=== PATIENT | male | born 1985 | race Caucasian/White ===

== ENCOUNTER 2017-05-13 01:19 | Emergency (ER) | payer SELFPAY ==
[~2017-05-13] VITALS: Ht 170.2 cm; Wt 70.7 kg
[~2017-05-13 01:19] MED LIST: CLARITIN,ALAVAR10 MG PO; MEDROL DOSEPAK4 MG PO; PREDNISONE5 MG PO; TRIAMCINOLONE A60 M1 TP; ZANTAC150 MG PO
[2017-05-13 01:47] LABS: HEMATOCRIT 43.9 % (38.0-50.0); MCH 32.4 PG (29.0-34.0); MCHC 35.1 G/DL (30.0-36.0); MCV 92.4 FL (86-99); PLATELET COUNT 198 K/uL (156-360); RBC DIS.WIDTH-CV 10.8 % (11.8-14.6); RBC DIS.WIDTH-SD 37.1 % (39-53); RED BLOOD COUNT 4.75 M/uL (4.00-5.50); WHITE BLOOD COUNT 11.7 K/uL (4.1-10.2)
[2017-05-13 02:07] LABS: CHLORIDE 110 mEq/L (99-109); POTASSIUM 3.7 mEq/L (3.7-5.4); SODIUM 144 mEq/L (136-147)
[2017-05-13 02:09] LABS: GLUCOSE 95 mg/dL (70-99)
[2017-05-13 02:10] LABS: ANION GAP 13 MEQ/L (2-14)
[2017-05-13 02:11] LABS: TOTAL BILIRUBIN 0.3 mg/dL (0.0-1.0)
[2017-05-13 02:12] LABS: ALKALINE PHOSPHATASE 52 IU/L (3-129); SERUM ETHYL ALCOHOL 174 mg/dL
[2017-05-13 02:13] LABS: GFR ESTIMATE (CALCULATED) > 59 mL/min/
[2017-05-13 02:14] LABS: UREA NITROGEN (BUN) 13 mg/dL (9-23)
[2017-05-13 03:08] VITALS: BP 116/58
== END 2017-05-13 03:10 ==
LOC: EME 01:19
PROVIDERS: Emergency Medicine
PROC: 3E0234Z Introduction of Serum, Toxoid and Vaccine into Muscle, Percutaneous Approach (ICD-10-PCS; principal; 2017-05-13)
DX: S00.01XA Abrasion of scalp, initial encounter (principal); S60.512A Abrasion of left hand, initial encounter; F10.129 Alcohol abuse with intoxication, unspecified; Y90.6 Blood alcohol level of 120-199 mg/100 ml; Y00.XXXA Assault by blunt object, initial encounter; F17.200 Nicotine dependence, unspecified, uncomplicated; Z23 Encounter for immunization
CPT/HCPCS: 70450; 80053; 85027; 99281; 99284; G0480